=== PATIENT | female | born 1975 | race Caucasian/White ===

== ENCOUNTER 2019-02-26 17:24 | Emergency (ER) | payer MEDICAID, OTHER ==
[2019-02-26] MEDS ORDERED: IBUPROFEN 400 MG TABLET PO ONE (18:00)
[2019-02-26] MEDS ORDERED: IBUPROFEN 400 MG TABLET ONE (18:01)
== END 2019-02-26 18:22 | disposition home or self-care (01) ==
LOC: ER 17:24
DX: S16.1XXA Strain of muscle, fascia and tendon at neck level, initial encounter (principal); S09.8XXA Other specified injuries of head, initial encounter; V49.59XA Passenger injured in collision with other motor vehicles in traffic accident, initial encounter; Y93.89 Activity, other specified; Y92.410 Unspecified street and highway as the place of occurrence of the external cause; Y99.8 Other external cause status

== ENCOUNTER 2019-10-16 11:35 | Emergency (ER) | payer MEDICAID, OTHER ==
[~2019-10-16] VITALS: Ht 165.1 cm; Wt 70.8 kg
[2019-10-16 11:46] VITALS: BP 134/65
[2019-10-16] MEDS ORDERED: KETOROLAC TROMETHAMINE INJ 30 MG/ML VIAL ONE (12:22)
[2019-10-16] MEDS ORDERED: IBUPROFEN 400 MG TABLET PO ONE (12:30)
[2019-10-16] MEDS ORDERED: KETOROLAC TROMETHAMINE INJ 60 MG/2 ML VIAL IM ONE (12:30)
[2019-10-16] MEDS ORDERED: IBUPROFEN 400 MG TABLET ONE (12:32)
--- NOTE | 2019-10-16 12:37 | NUR ---
Ambulatory with steady gait, Patient discharged to home in stable condition. Written and verbal after care instructions given. Patient verbalizes understanding of instruction.
== END 2019-10-16 12:38 | disposition home or self-care (01) ==
LOC: ER 11:40
DX: S13.4XXA Sprain of ligaments of cervical spine, initial encounter (principal); V49.59XA Passenger injured in collision with other motor vehicles in traffic accident, initial encounter; Y93.89 Activity, other specified; Y92.413 State road as the place of occurrence of the external cause; Y99.8 Other external cause status
CPT/HCPCS: J1885